=== PATIENT | male | born 1960 | race Hispanic/Latino ===

== ENCOUNTER 2017-12-09 14:29 | Inpatient (IN) | payer OTHER ==
--- NOTE | 2017-12-09 14:57 | ED PDOC ---
Arrival/HPI - General Chief Complaint: Chest Pain Time Seen by Provider: 12/09/17 14:34 Historian: Patient - History of Present Illness Narrative History of Present Illness (Text): 12/09/17 14:45 57 year old male, whose past medical history includes diabetes and gout, who presents to the Emergency department complaining of suddenly developing chest pain and palpitations 1 hour prior to arrival. Patient states he was at a car wash when he suddenly developed these symptoms, and notes his right hand was shaking and his left hand started feeling "out of control." Patient notes he still has these symptoms, but not sweating anymore and his hands are not shaking. Patient has no history of hypertension, no known CAD, is a non-smoker, and has no significant past family history. Patient denies any fever, cough, vomiting, diarrhea, abdominal pain, neck pain, headache, dizziness, or any other complaints. Time/Duration: Prior to Arrival Symptom Onset: Sudden Symptom Course: Unchanged Quality: Aching Activities at Onset: Light Context: Other (Car wash) Past Medical History - Provider Review Nursing Documentation Reviewed: Yes - Pulmonary Hx Asthma: Yes - Endocrine/Metabolic Hx Diabetes Mellitus Type 2: Yes - Musculoskeletal/Rheumatological Hx Gout: Yes - Psychiatric Hx Substance Use: No Family/Social History - Physician Review Nursing Documentation Reviewed: Yes Family/Social History: No Known Family HX Smoking Status: Never Smoked Hx Alcohol Use: No Hx Substance Use: No Allergies/Home Meds Allergies/Adverse Reactions: Allergies No Known Allergies Allergy (Verified 12/09/17 14:43) Home Medications: Home Meds Medication Instructions Recorded Confirmed Dapagliflozin Propanediol [Farxiga] 5 mg PO DAILY 12/09/17 12/09/17 Review of Systems - Physician Review All systems were reviewed & negative as marked: Yes - Review of Systems Constitutional: Normal. absent: Fevers Eyes: Normal ENT: Normal Respiratory: Normal. absent: Cough Cardiovascular: Chest Pain, Palpitations. absent: Normal Gastrointestinal: Normal. absent: Abdominal Pain, Diarrhea, Nausea, Vomiting Genitourinary Male: Normal Musculoskeletal: Normal. absent: Back Pain, Neck Pain Skin: Normal Neurological: Other (patient notes left hand was shaking, and right hand felt "out of control"). absent: Normal, Headache, Dizziness Endocrine: Diaphoresis. absent: Normal Hemo/Lymphatic: Normal Psychiatric: Normal Physical Exam Vital Signs Reviewed: Yes Vital Signs Temp Pulse Resp BP Pulse Ox 12/09/17 15:19 74 17 131/87 95 12/09/17 14:44 97.8 F 76 17 154/105 H 96 Temperature: Afebrile Blood Pressure: Hypertensive Pulse: Regular Respiratory Rate: Normal Appearance: Positive for: Well-Appearing, Non-Toxic Pain Distress: None Mental Status: Positive for: Alert and Oriented X 3 Finger Stick Blood Glucose: 132 - Systems Exam Head: Present: Atraumatic, Normocephalic Pupils: Present: PERRL Extroacular Muscles: Present: EOMI Conjunctiva: Present: Normal Mouth: Present: Moist Mucous Membranes Neck: Present: Normal Range of Motion Respiratory/Chest: Present: Clear to Auscultation, Good Air Exchange. No: Respiratory Distress, Accessory Muscle Use Cardiovascular: Present: Regular Rate and Rhythm, Normal S1, S2. No: Murmurs Abdomen: No: Tenderness, Distention, Peritoneal Signs Back: Present: Normal Inspection Upper Extremity: Present: Normal Inspection. No: Cyanosis, Edema Lower Extremity: Present: Normal Inspection. No: Edema Neurological: Present: GCS=15, CN II-XII Intact, Speech Normal, Other (strength equal side to side) Skin: Present: Warm, Dry, Normal Color. No: Rashes Psychiatric: Present: Alert, Oriented x 3, Anxious (seems extremely anxious) Medical Decision Making ED Course and Treatment: 12/09/17 14:45 Impression: 57 year old male who presents to the Emergency department after suddenly developing chest pain, palpitations, breaking out into a sweat and shaky hands 1 hour prior to arrival. Plan: -- EKG -- Labs -- X-Ray of chest -- Aspirin 324 mg PO -- Nitrostat SL tab -- Reassess and disposition Progress Notes: 12/09/17 14:[address] Smiley who is aware of and agrees with plan, suggests sterile enzymes and stress test. EKG: Ordered, reviewed, and independently interpreted the EKG. Interpretation : NSR at [address] changes. Chest X-Ray reviewed by radiologist, shows: Dictator : Morena Calix MD Report Date : 12/09/2017 15:23:21 FINDINGS: LUNGS: The lungs are well inflated and clear. PLEURA: No significant pleural effusion identified, no pneumothorax apparent. CARDIOVASCULAR: Normal. OSSEOUS STRUCTURES: No significant abnormalities. VISUALIZED UPPER ABDOMEN: Normal. OTHER FINDINGS: None. IMPRESSION: No active pulmonary disease. - Lab Interpretations Lab Results: 12/09/17 14:50 12/09/17 14:50 Lab Results 12/09/17 14:50: Sodium 138, Potassium 4.2, Chloride 105, Carbon Dioxide 23, Anion Gap 15, BUN 16, Creatinine 0.8, Est GFR ( Amer) > 60, Est GFR (Non- Af Amer) > 60, Random Glucose 148 H, Calcium 9.1, Phosphorus 2.9, Magnesium 2.0 , Total Bilirubin 0.4, AST 21, ALT 21, Alkaline Phosphatase 98, Lactate Dehydrogenase 465, Total Creatine Kinase 74, Troponin I < 0.01, Total Protein 7.5, Albumin 3.9, Globulin 3.6, Albumin/Globulin Ratio 1.1 12/09/17 14:50: PT 11.1, INR 0.97 12/09/17 14:50: WBC 9.6, RBC 5.47, Hgb 15.5, Hct 44.9, MCV 82.1, MCH 28.3, MCHC 34.5, RDW 13.3, Plt Count 350, MPV 9.8, Gran % 64.5, Lymph % (Auto) 19.4 L, Mills % (Auto) 8.8 H, Eos % (Auto) 7.1 H, Baso % (Auto) 0.2, Gran # 6.17, Lymph # (Auto) 1.9, Mills # (Auto) 0.8 H, Eos # (Auto) 0.7, Baso # (Auto) 0.02 - RAD Interpretation Radiology Orders: 12/09/17 14:47 CHEST PORTABLE [RAD] Stat Striker Out: Radiologist - EKG Interpretation Interpreted by ED Physician: Yes Type: 12 lead EKG - Medication Orders Current Medication Orders: Discontinued Medications Aspirin (Aspirin Chewable) 324 mg PO STAT STA Stop: 12/09/17 14:47 Last Admin: 12/09/17 14:53 Dose: 324 mg Nitroglycerin (Nitrostat Sl Tab) 0.4 mg SL STAT STA Stop: 12/09/17 14:47 Last Admin: 12/09/17 14:52 Dose: 0.4 mg Nitroglycerin (Nitrostat Sl Tab) 0.4 mg SL STAT STA Stop: 12/09/17 15:20 Last Admin: 12/09/17 15:22 Dose: 0.4 mg - Scribe Statement The provider has reviewed the documentation as recorded by the Joelibe Gifty Dickerson All medical record entries made by the Hayden were at my direction and personally dictated by me. I have reviewed the chart and agree that the record accurately reflects my personal performance of the history, physical exam, medical decision making, and the department course for this patient. I have also personally directed, reviewed, and agree with the discharge instructions and disposition. Disposition/Present on Arrival - Present on Arrival Any Indicators Present on Arrival: No History of DVT/PE: No History of Uncontrolled Diabetes: No Urinary Catheter: No History of Decub. Ulcer: No History Surgical Site Infection Following: None - Disposition Have Diagnosis and Disposition been Completed?: Yes Diagnosis: Chest pain Disposition: HOSPITALIZED Disposition Time: 16:28 Patient Plan: Observation, Telemetry Condition: GOOD Discharge Instructions (ExitCare): Chest Pain (ED) Referrals: Dustin Smiley MD [Primary Care Provider] - Follow up with primary Forms: [employer] (Japanese)
[2017-12-09 15:15] LABS: BASO # 0.02 K/mm3 (0.0-2.0); BASO % 0.2 % (0.0-3.0); EOS # 0.7 (0.0-0.7); EOS % 7.1 % (1.5-5.0); GRAN # 6.17 (1.4-6.5); GRAN % 64.5 % (50.0-68.0); HEMOGLOBIN 15.5 g/dL (14.0-18.0); LYMPH # 1.9 (1.2-3.4); LYMPH % 19.4 % (22.0-35.0); MEAN CELL VOLUME 82.1 fl (80.0-105.0); MEAN CORPUSCULAR HEMOGLOBIN 28.3 pg (25.0-35.0); MEAN CORPUSCULAR HGB CONC 34.5 g/dl (31.0-37.0); MEAN PLATELET VOLUME 9.8 fl (7.0-11.0); MONO # 0.8 (0.1-0.6); MONO % 8.8 % (1.0-6.0); RBC 5.47 10^6/uL (3.5-6.1); RED CELL DISTRIBUTION WIDTH 13.3 % (11.5-14.5); WHITE BLOOD COUNT 9.6 10^3/ul (4.5-11.0)
[2017-12-09 15:16] LABS: INR 0.97; PROTHROMBIN TIME 11.1 SECONDS (9.4-12.5)
--- NOTE | 2017-12-09 15:24 | RAD ---
Date of service: 12/09/2017 HISTORY: chest pain COMPARISON: No prior. FINDINGS: LUNGS: The lungs are well inflated and clear. PLEURA: No significant pleural effusion identified, no pneumothorax apparent. CARDIOVASCULAR: Normal. OSSEOUS STRUCTURES: No significant abnormalities. VISUALIZED UPPER ABDOMEN: Normal. OTHER FINDINGS: None. IMPRESSION: No active pulmonary disease.
[2017-12-09 15:26] LABS: ALB/GLOB RATIO 1.1 (1.1-1.8); ALBUMIN 3.9 g/dL (3.0-4.8); ALT/SGPT 21 U/L (7-56); AST/SGOT 21 U/L (17-59); BLOOD UREA NITROGEN 16 mg/dL (7-21); CALCIUM 9.1 mg/dL (8.4-10.5); GFR NON-AFRICAN AMERICAN > 60
--- NOTE | 2017-12-09 15:36 | CARD ---
APPROVED REPORT Date of service: 12/09/2017 EKG Measurement Heart [id number] [id number] <Conclusion> Normal sinus rhythm Normal ECG
[2017-12-09 15:41] LABS: TROPONIN I < 0.01 ng/mL
[2017-12-09] MEDS ORDERED: Dextrose 50% SYRINGE Inj (50 ml) IV PRN (16:47)
[2017-12-09] MEDS ORDERED: Albuterol-Ipratrop 3 mg / 0.5 (3 ml) UD IH PRN (17:13)
--- NOTE | 2017-12-09 17:20 | CP.PCM.HP ---
<Kaylin Parker - Last Filed: 12/09/17 17:41> History of Present Illness - History of Present Illness History of Present Illness: Kaylin Parker PGY1 H&P for Dr. Stewart Mr. Fernandes is a 57yoM with a PMH of asthma, DM 2, and gout who presented to the ED for chest pain x1 hour. He reports driving home from the [place] with his and stopping for gas when he felt the chest pain start. He describes the pain as dull, and rates it 8/10. He says he also felt decreased strength in the L hand and shaking in the R hand. He also reports sweating, and his said he looked pale. He also reports shortness of breath and dizziness at the time. He denies any palpitations. He denied any trauma or strain to muscles. He reports a previous history of this 12 years ago when he was taking bupropion and on the nicotine patch, upon which he went to the ED and his workup for chest pain was unremarkable. He says the chest pain has now subsided, and he just feel soreness. He denies any current shortness of breath, dizziness, abdominal pain, nausea, vomiting, diarrhea, dysuria, or polyuria. Psych: denied any feelings of hopelessness, loss of interest in activities, anxiety, feelings of doom, or increased stress In the ED, he received ASA 325 and nitrostat 0.4 x2. PMH: asthma, DM 2, gout PSxH: orthopedic surgery on L arm 1973 FamH: mom - lung cancer, dad from atherosclerosis SocH: former smoker, quit 12 y ago. 29pack/yr history. social etoh use. denies recreational drug use. lives at home with his . drinks 7 cups of coffee/day (only had 2 today) Meds: farxiga, advair BID, provair daily Allergies: NKDA PMD: Dr. Smiley Present on Admission - Present on Admission Any Indicators Present on Admission: No Review of Systems - Constitutional Constitutional: Excessive Sweating. absent: Headache - Cardiovascular Cardiovascular: Chest Pain, Diaphoresis, Dyspnea. absent: Palpitations - Respiratory Respiratory: Dyspnea - Gastrointestinal Gastrointestinal: Abdominal Pain. absent: Nausea, Vomiting - Genitourinary Genitourinary: absent: Dysuria, Urinary Frequency - Musculoskeletal Musculoskeletal: Numbness, Tingling - Neurological Neurological: absent: Headaches - Psychiatric Psychiatric: absent: Anxiety, Depression, Hopelessness, Suicidal Ideation Past Patient History - Past Social History Smoking Status: Never Smoked - PULMONARY Hx Asthma: Yes - ENDOCRINE/METABOLIC Hx Diabetes Mellitus Type 2: Yes - MUSCULOSKELETAL/RHEUMATOLOGICAL Hx Gout: Yes - PSYCHIATRIC Hx Substance Use: No - SURGICAL HISTORY Hx Surgeries: No Meds Allergies/Adverse Reactions: Allergies Allergy/AdvReac Type Severity Reaction Status Date / Time No Known Allergies Allergy Verified 12/09/17 14:43 Physical Exam - Constitutional Appears: Well, No Acute Distress - Head Exam Head Exam: ATRAUMATIC, NORMOCEPHALIC - Eye Exam Eye Exam: EOMI Pupil Exam: NORMAL ACCOMODATION - ENT Exam ENT Exam: Mucous Membranes Moist - Respiratory Exam Respiratory Exam: Clear to Auscultation Bilateral, NORMAL BREATHING PATTERN. absent: Rhonchi, Wheezes, Stridor - Cardiovascular Exam Cardiovascular Exam: REGULAR RHYTHM, +S1, +S2. absent: Gallop, Rubs, Systolic Murmur - GI/Abdominal Exam GI & Abdominal Exam: Normal Bowel Sounds, Soft. absent: Distended, Firm, Tenderness - Extremities Exam Extremities exam: Negative for: pedal edema - Back Exam Back exam: NORMAL INSPECTION - Neurological Exam Neurological exam: Alert, CN II-XII Intact, Motor Sensory Deficit, Oriented x3 Additional comments: decreased sensation of L anterior digits compared to R - Psychiatric Exam Psychiatric exam: Normal Affect, Normal Mood - Skin Skin Exam: Normal Color Results - Vital Signs Recent Vital Signs: Last Vital Signs Temp 98.6 F 12/09/17 17:00 Pulse 72 12/09/17 17:00 Resp 18 12/09/17 17:00 BP 156/79 H 12/09/17 17:00 Pulse Ox 96 12/09/17 17:00 - Labs Result Diagrams: 12/09/17 14:50 12/09/17 14:50 Assessment & Plan - Assessment and Plan (Free Text) Assessment: 57yo M PMH asthma, DM 2, gout presents with chest pain admitted for r/o ACS Plan: Chest pain r/o ACS - pt with episode of chest pain x1 hr - reported improvement with ASA 325 and nitrostat x2 in ED - EKG: NSR @78 - CXR: no active disease - trop negative x1 - f/u repeat trops - f/u repeat EKG in AM - f/u lipid panel - f/u TSH, free T4 - f/u ECHO - f/u UDS - admit to tele - Cardio consulted, Dr. Yanez - f/u recs Asthma - home meds: advair BID, provair PRN (reports increased use recently) - sat 96% on RA - duonebs PRN - monitor DM 2 - reports last HbA1c 2 months ago: 6.2 - reports glucose at home 100-130s - Glucose in ED: 148 - start sliding scale - accuchecks - f/u HbA1c - continue to monitor PPx: GI: protonix 40 DVT: SCDs, low risk for DVT/PE HHD Case discussed and plan reviewed with Dr. Stewart Decision To Admit - Pt Status Changed To: Hospital Disposition Of: Inpatient Admission - Admit Certification Admit to Inpatient:: After my assessment, the patient will require hospitalization for at least two midnights. This is because of the severity of symptoms shown, intensity of services needed, and/or the medical risk in this patient being treated as an outpatient. - . Bed Request Type: Telemetry <Maria Elena Stewart - Last Filed: 12/09/17 18:24> Results - Vital Signs Recent Vital Signs: Last Vital Signs Temp 97.6 F 12/09/17 17:53 Pulse 68 12/09/17 17:53 Resp 16 12/09/17 17:53 BP 118/78 12/09/17 17:53 Pulse Ox 96 12/09/17 17:00 - Labs Result Diagrams: 12/09/17 14:50 12/09/17 14:50 Labs: Laboratory Results - last 24 hr 12/09/17 12/09/17 17:06 17:18 POC Glucose (mg/dL) 115 H Free T4 1.05 TSH 3rd Generation 3.04 Attending/Attestation - Attestation I have personally seen and examined this patient.: Yes I have fully participated in the care of the patient.: Yes I have reviewed all pertinent clinical information: Yes Notes (Text): 12/09/17 18:20 57 year old male with past medical history of diabetes and asthma who presents with complaint of chest pain. Will admit to telemetry unit for observation to rule out ACS. Serial cardiac enzymes and echocardiogram are ordered. Patient admits to excessive coffee intake and was counselled on limiting daily caffeine intake. Will also check lipid panel and TSH. Maria Elena Stewart MD Hospitalist.
[2017-12-09 17:33] LABS: FREE T4 1.05 ng/dL (0.78-2.19)
[2017-12-09 21:38] LABS: BARBITURATES, UR NEGATIVE (NEGATIVE); BENZODIAZEPINES, UR NEGATIVE (NEGATIVE); OPIATES, UR NEGATIVE (NEGATIVE); PHENCYCLIDINE, UR NEGATIVE (NEGATIVE)
[2017-12-09] MEDS: Insulin Reg-LOW-Coverage SC SCH (21:49)
[2017-12-10 06:32] LABS: BASO # 0.05 K/mm3 (0.0-2.0); BASO % 0.5 % (0.0-3.0); EOS # 1.4 (0.0-0.7); EOS % 13.8 % (1.5-5.0); GRAN # 5.51 (1.4-6.5); GRAN % 53.2 % (50.0-68.0); HEMOGLOBIN 15.1 g/dL (14.0-18.0); LYMPH # 2.5 (1.2-3.4); LYMPH % 23.9 % (22.0-35.0); MEAN CELL VOLUME 82.2 fl (80.0-105.0); MEAN CORPUSCULAR HGB CONC 34.1 g/dl (31.0-37.0); MEAN PLATELET VOLUME 9.7 fl (7.0-11.0); MONO # 0.9 (0.1-0.6); MONO % 8.6 % (1.0-6.0); RBC 5.39 10^6/uL (3.5-6.1); RED CELL DISTRIBUTION WIDTH 13.5 % (11.5-14.5); WHITE BLOOD COUNT 10.4 10^3/ul (4.5-11.0)
[2017-12-10 06:43] LABS: ALB/GLOB RATIO 1.1 (1.1-1.8); ALBUMIN 3.3 g/dL (3.0-4.8); ALT/SGPT 27 U/L (7-56); AST/SGOT 19 U/L (17-59); BLOOD UREA NITROGEN 14 mg/dL (7-21); CALCIUM 9.3 mg/dL (8.4-10.5); GFR NON-AFRICAN AMERICAN > 60; HDL CHOLESTEROL 47 mg/dL (29-60)
[2017-12-10 06:53] LABS: LDL CHOLESTEROL 120 mg/dL (0-129)
[2017-12-10] MEDS: Insulin Reg-LOW-Coverage SC SCH ×4 (08:01→21:38)
[2017-12-10] MEDS: Pantoprazole 40 mg EC Tab PO SCH (08:17)
--- NOTE | 2017-12-10 08:59 | CARD ---
APPROVED REPORT Date of service: 12/10/2017 EKG Measurement Heart [id number] 150P50 [id number] <Conclusion> Normal sinus rhythm J-point elevations No change
[2017-12-10] MEDS: Enoxaparin 100 mg Syringe SC SCH ×2 (10:28→21:06)
--- NOTE | 2017-12-10 11:18 | CARD ---
APPROVED REPORT Date of service: 12/10/2017 EXAM: Two-dimensional and M-mode echocardiogram with Doppler and color Doppler. INDICATION Chest Pain 2D DIMENSIONS Left Atrium (2D)3.7 (1.6-4.0cm)IVSd1.2 (0.7-1.1cm) LVDd3.5 (3.9-5.9cm)PWd1.2 (0.7-1.1cm) LVDs2.5 (2.5-4.0cm)FS (%) 28.1 % LVEF (%)55.4 (>50%) M-Mode DIMENSIONS Aortic Root2.60 (2.2-3.7cm)Aortic Cusp Exc.1.50 (1.5-2.0cm) Aortic Valve AoV Peak Cujcsvyl570.0cm/Romain Peak GR.8mmHg Mitral Valve MV E Qkkdenlx41.1cm/sMV A Pqawvxrh40.1cm/sE/A ratio0.7 TDI E/Lateral E'0.0E/Medial E'0.0 Tricuspid Valve TR Peak Wilhbfkt327xm/sRAP [id number] Peak Gr.5mmHg [id number] LEFT VENTRICLE The left ventricle is normal size. There is borderline concentric left ventricular hypertrophy. The left ventricular function is normal. The left ventricular ejection fraction is within the normal range. There is normal LV segmental wall motion. Transmitral Doppler flow pattern is Grade I-abnormal relaxation pattern. RIGHT VENTRICLE The right ventricle is normal size. There is normal right ventricular wall thickness. The right ventricular systolic function is normal. ATRIA The left atrium size is normal. The right atrium size is normal. AORTIC VALVE The aortic valve is normal in structure. No aortic regurgitation is present. There is no aortic valvular stenosis. MITRAL VALVE The mitral valve is mildly thickened. There is no mitral valve regurgitation noted. There is no mitral valve stenosis. TRICUSPID VALVE The tricuspid valve is normal in structure. There is no tricuspid valve regurgitation noted. GREAT VESSELS The aortic root is normal in size. The IVC is normal in size and collapses >50% with inspiration. PERICARDIAL EFFUSION There is a trace circumferential pericardial effusion. <Conclusion> The left ventricle is normal size. There is borderline concentric left ventricular hypertrophy. The left ventricular function is normal. The left ventricular ejection fraction is within the normal range. There is normal LV segmental wall motion. Transmitral Doppler flow pattern is Grade I-abnormal relaxation pattern.
--- NOTE | 2017-12-10 15:34 | CP.PCM.PN ---
<Jeb Caicedo Judy - Last Filed: 12/10/17 15:28> Subjective - Date & Time of Evaluation Date of Evaluation: 12/10/17 Time of Evaluation: 15:30 - Subjective Subjective: Medicine progress note: Marifer PGY - 2, IM resident Patient seen and examined at bedside, no acute overnight events. Denies any more chest pain or shortness of breath. Objective - Vital Signs/Intake and Output Vital Signs (last 24 hours): Temp Pulse Resp BP Pulse Ox 98 F 65 18 119/79 96 12/10/17 12:17 12/10/17 12:17 12/10/17 12:17 12/10/17 12:17 12/10/17 08:44 - Medications Medications: Current Medications Acetaminophen (Tylenol 325mg Tab) 650 mg PO Q6H PRN PRN Reason: Fever >100.4 F Albuterol/Ipratropium (Duoneb 3 Mg/0.5 Mg (3 Ml) Ud) 3 ml IH [id number] PRN PRN Reason: Shortness of Breath Aspirin (Ecotrin) 81 mg PO DAILY [facility] Last Admin: 12/10/17 10:27 Dose: 81 mg Atorvastatin Calcium (Lipitor) 40 mg PO DIN [facility] Clopidogrel Bisulfate (Plavix) 75 mg PO DAILY [facility] Last Admin: 12/10/17 10:27 Dose: 75 mg Dextrose (Dextrose 50% Inj) 0 ml IV STAT PRN; Protocol PRN Reason: Hypoglycemia Protocol Enoxaparin Sodium (Lovenox) 85 mg SC Q12H RAISSA PRN Reason: Protocol Last Admin: 12/10/17 10:28 Dose: 85 mg Dextrose (Dextrose 5% In Water 1000 Ml) 1,000 mls @ 0 mls/hr IV .Q0M PRN; Protocol; Per Protocol PRN Reason: Hypoglycemia Protocol Insulin Human Regular (Humulin R Low) 0 units SC ACHS [facility] PRN Reason: Protocol Last Admin: 12/10/17 11:30 Dose: Not Given Metoprolol Tartrate (Lopressor) 25 mg PO BID [facility] Last Admin: 12/10/17 10:27 Dose: 25 mg Pantoprazole Sodium (Protonix Ec Tab) 40 mg PO 0600 [facility] Last Admin: 12/10/17 08:17 Dose: 40 mg - Labs Labs: PT 11.1 SECONDS (9.4-12.5) 08/26/18 14:50 INR 0.97 12/09/17 14:50 - Constitutional Appears: Well - Head Exam Head Exam: ATRAUMATIC, NORMAL INSPECTION, NORMOCEPHALIC - Eye Exam Eye Exam: EOMI, Normal appearance, PERRL Pupil Exam: NORMAL ACCOMODATION, PERRL - ENT Exam ENT Exam: Mucous Membranes Moist, Normal Exam - Neck Exam Neck Exam: Full ROM, Normal Inspection. absent: Lymphadenopathy - Respiratory Exam Respiratory Exam: Clear to Ausculation Bilateral, NORMAL BREATHING PATTERN - Cardiovascular Exam Cardiovascular Exam: REGULAR RHYTHM, +S1, +S2. absent: Murmur - GI/Abdominal Exam GI & Abdominal Exam: Soft, Normal Bowel Sounds. absent: Tenderness - Extremities Exam Extremities Exam: Full ROM, Normal Capillary Refill, Normal Inspection. absent : Joint Swelling, Pedal Edema - Back Exam Back Exam: NORMAL INSPECTION - Neurological Exam Neurological Exam: Alert, Awake, CN II-XII Intact, Normal Gait, Oriented x3 - Psychiatric Exam Psychiatric exam: Normal Affect, Normal Mood - Skin Skin Exam: Dry, Intact, Normal Color, Warm Assessment and Plan - Assessment and Plan (Free Text) Assessment: 57yo M PMH asthma, DM 2, gout presents with chest pain admitted for r/o ACS Elevated ASCVD score; patient also shows ST/T changes on recent EKG. Although 3 tropes are negative, patient's risk factors warrant laboratory machinist exploration. Plan: Chest pain r/o ACS - Metoprolol, Therapeutic Lovenox, Lipitor, and Plavix - Admit to tele - Cardio consulted, Dr. 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 Asthma - Continue home advair BID, provair PRN (reports increased use recently) - Duonebs PRN DM 2 - RISS with accuchecks PPx: GI: protonix 40 DVT: SCDs, low risk for DVT/PE HHD <Maria Elena Stewart - Last Filed: 12/10/17 16:44> Objective - Vital Signs/Intake and Output Vital Signs (last 24 hours): Temp Pulse Resp BP Pulse Ox 98 F 65 18 119/79 96 12/10/17 12:17 12/10/17 12:17 12/10/17 12:17 12/10/17 12:17 12/10/17 08:44 - Medications Medications: Current Medications Acetaminophen (Tylenol 325mg Tab) 650 mg PO Q6H PRN PRN Reason: Fever >100.4 F Albuterol/Ipratropium (Duoneb 3 Mg/0.5 Mg (3 Ml) Ud) 3 ml IH [id number] PRN PRN Reason: Shortness of Breath Aspirin (Ecotrin) 81 mg PO DAILY [facility] Last Admin: 12/10/17 10:27 Dose: 81 mg Atorvastatin Calcium (Lipitor) 40 mg PO DIN RAISSA Clopidogrel Bisulfate (Plavix) 75 mg PO DAILY [facility] Last Admin: 12/10/17 10:27 Dose: 75 mg Dextrose (Dextrose 50% Inj) 0 ml IV STAT PRN; Protocol PRN Reason: Hypoglycemia Protocol Enoxaparin Sodium (Lovenox) 85 mg SC Q12H RAISSA PRN Reason: Protocol Last Admin: 12/10/17 10:28 Dose: 85 mg Dextrose (Dextrose 5% In Water 1000 Ml) 1,000 mls @ 0 mls/hr IV .Q0M PRN; Protocol; Per Protocol PRN Reason: Hypoglycemia Protocol Insulin Human Regular (Humulin R Low) 0 units SC ACHS [facility]ISSA PRN Reason: Protocol Last Admin: 12/10/17 11:30 Dose: Not Given Metoprolol Tartrate (Lopressor) 25 mg PO BID [facility] Last Admin: 12/10/17 10:27 Dose: 25 mg Pantoprazole Sodium (Protonix Ec Tab) 40 mg PO 0600 [facility] Last Admin: 12/10/17 08:17 Dose: 40 mg - Labs Labs: PT 11.1 SECONDS (9.4-12.5) 12/09/17 14:50 INR 0.97 12/09/17 14:50 Attending/Attestation - Attestation I have personally seen and examined this patient.: Yes I have fully participated in the care of the patient.: Yes I have reviewed all pertinent clinical information, including history, physical exam and plan: Yes Notes (Text): 12/10/17 16:43 57 year old male with past medical history of diabetes and asthma who presented with complaint of chest pain. Although serial cardiac enzymes are negative, EKG does show ST changes as viewed with cardiology. Patient is on aspirin, plavix, metoprolol, statin and lovenox. Echocardiogram was reviewed. Plan is for possible cardiac cath tomorrow. Maria Elena Stewart MD Hospitalist.
--- NOTE | 2017-12-10 21:28 | CON ---
Copied To: Tim Yanez MD Attending MD: Tim Yanez MD DATE: 12/10/2017 CARDIOLOGY CONSULTATION REASON FOR CONSULTATION: Chest pain. HISTORY OF PRESENT ILLNESS: Patient is 57 years old male who has a history of diabetes mellitus for about 1 year presented because of chest pain. The patient stated that he was with his in a carwash. He started to feel chest pain, felt weak and diaphoretic and his noticed that he was pale. EMS was activated and the patient was brought to the emergency room. In the emergency room, the patient did experience recurrent chest pain which was relieved by sublingual nitroglycerin. The patient is unaware of any prior cardiac history. The most recent cardiac workup was stress test many years ago by his primary physician that was negative. PAST MEDICAL HISTORY: Diabetes mellitus, gouty arthritis. REVIEW OF SYSTEMS: No fever or chills. No nausea or vomiting. No syncope. MEDICATIONS: Aspirin 81 mg once a day, Lipitor 40 mg once a day, Lopressor 25 mg twice a day, Lovenox 85 mg subcutaneous twice a day, Plavix 75 mg once a day. PHYSICAL EXAMINATION: GENERAL: Patient is a middle aged male who does not appear to be in any distress. VITAL SIGNS: Blood pressure 129/82, heart rate 69, temperature 98.5, respirations 20. HEENT: Normocephalic. NECK: No JVD. CHEST: Clear. HEART: S1, S2 regular. No gallop and no pericardial rub. ABDOMEN: Soft. EXTREMITIES: No edema and no calf tenderness. LABORATORY DATA: SMA-7: Sodium 140, potassium 4.5, chloride 106, CO2 25, glucose 122, BUN 14, creatinine 0.9. Two sets of troponins are negative. Lipid profile is within normal limit. PT 11.1, INR 0.97. CBC: WBC 10.4, hemoglobin 15.1, hematocrit 44.3, platelet count 331,000. EKG initially revealed sinus rhythm. Subsequently showed 1 mm J-point elevation in the inferior leads. Echocardiographic study revealed sinus rhythm, borderline concentric LVH with normal systolic function and grade 1 abnormal relaxation pattern. ASSESSMENT: 1. Chest pain. Two sets of troponins are negatives. EKG revealed subtle inferior ST elevation. Patient is currently chest pain-free. 2. Diabetes mellitus. 3. Gouty arthritis. CONDITIONS: Case was discussed with Dr. Stewart and medical team. I earlier recommended placing the patient on the current medications including Lipitor 40 mg once a day, Lopressor 25 mg twice a day, therapeutic subcutaneous Lovenox 85 mg twice a day, Plavix 75 mg once a day. Cardiac catheterization was recommended in view of the typical nature of the chest pain and the subtle EKG changes that are dynamic at this time. risks fully explained to the patient. The patient agreed and we scheduled for 10 o' clock in a.m. Tim Yanez MD
[2017-12-11] MEDS: Pantoprazole 40 mg EC Tab PO SCH (05:07)
[2017-12-11 06:25] LABS: BASO # 0.05 K/mm3 (0.0-2.0); BASO % 0.5 % (0.0-3.0); EOS # 1.5 (0.0-0.7); EOS % 14.7 % (1.5-5.0); GRAN # 4.84 (1.4-6.5); GRAN % 47.5 % (50.0-68.0); HEMOGLOBIN 15.2 g/dL (14.0-18.0); LYMPH % 29.1 % (22.0-35.0); MEAN CORPUSCULAR HEMOGLOBIN 28.4 pg (25.0-35.0); MEAN CORPUSCULAR HGB CONC 34.2 g/dl (31.0-37.0); MEAN PLATELET VOLUME 9.8 fl (7.0-11.0); MONO # 0.8 (0.1-0.6); MONO % 8.2 % (1.0-6.0); RBC 5.35 10^6/uL (3.5-6.1); RED CELL DISTRIBUTION WIDTH 13.6 % (11.5-14.5); WHITE BLOOD COUNT 10.2 10^3/ul (4.5-11.0)
[2017-12-11 06:45] LABS: ALB/GLOB RATIO 1.1 (1.1-1.8); ALBUMIN 3.2 g/dL (3.0-4.8); ALT/SGPT 25 U/L (7-56); AST/SGOT 16 U/L (17-59); BLOOD UREA NITROGEN 13 mg/dL (7-21); CALCIUM 8.9 mg/dL (8.4-10.5); GFR NON-AFRICAN AMERICAN > 60
[2017-12-11] MEDS: Insulin Reg-LOW-Coverage SC SCH ×4 (07:38→21:48)
[2017-12-11] MEDS ORDERED: Albuterol-Ipratrop 3 mg / 0.5 (3 ml) UD IH ONE (08:00)
[2017-12-11] MEDS ORDERED: Iohexol 350mgl/ml 50 ML ONE (09:16)
[2017-12-11] MEDS ORDERED: Iodixanol 320 MG/ML 100 ML BOTTLE IV ONE (09:16)
[2017-12-11] MEDS ORDERED: Phenylephrine 10 mg/ml Inj ONE (09:17)
[2017-12-11] MEDS ORDERED: Iodixanol 320 MG/ML 200 ML BOTTLE IV ONE (09:17)
[2017-12-11] MEDS ORDERED: Midazolam 2 MG/2 ML VIAL ONE ×3 (10:01→10:30)
[2017-12-11] MEDS ORDERED: Eptifibatide 20 mg/10mL Inj IVP ONE (10:15)
[2017-12-11] MEDS ORDERED: Nitroglycerin 50mg in D5W 50 MG/250 ML BOTTLE IV ONE (10:39)
[2017-12-11] MEDS ORDERED: Sodium Chloride 0.9% 1,000 ML IV SCH (11:00)
--- NOTE | 2017-12-11 11:32 | CARDCATH ---
Copied To: Brant Quintanilla MD Attending MD: Brant Quintanilla MD PROCEDURE DATE: 12/11/2017 PTCA AND STENT HISTORY: The patient is a 57-year-old male with history of diabetes mellitus, who presents with classic anginal symptoms. The patient underwent cardiac catheterization with Dr. Yanez, which revealed an eccentric 70% stenosis in the proximal RCA. Because of his ongoing symptoms at rest, I was asked to do PTCA and stent in his RCA. PROCEDURE: PTCA and stent of an RCA with coronary arteriography. I performed moderate sedation, which included the presence of an independent trained observer that assisted in monitoring the patient's level of consciousness and physiologic status. After administration of Versed and fentanyl, my intra service time was 30 minutes. Coronary arteriography revealed an eccentric 70% stenosis in the proximal portion of the RCA. The patient was given 2 doses of Integrilin boluses as well as intravenous Angiomax. Under fluoroscopic guide, the guiding catheter was placed in the RCA. An 0.014 ATW wire was used to cross the lesion. A 3.5 x 12 mm drug-eluting stent was placed and deployed at 18 atmospheres of pressure. Repeat coronary arteriography revealed an excellent result with some narrowing in the proximal RCA prior to the stent. 200 mcg of IC nitroglycerin was given. Repeat coronary arteriography revealed resolution of the spasm and an excellent result post PTCA and stent with a drug-eluting stent. Angio-Seal was used to close the femoral artery site. The patient tolerated the procedure well. In summary, the procedure was a successful PTCA and stent of a critically stenosed proximal RCA stenosis. Coronary arteriography revealed single-vessel CAD. Given these findings, I have discussed with the patient and family about his need for aspirin indefinitely, Plavix for at least a year and undergo a strict cardiac risk reduction program. Brant Quintanilla MD
--- NOTE | 2017-12-11 16:50 | CARDCATH ---
Copied To: Tim Yanez MD Attending MD: Tim Yanez MD PROCEDURE DATE: 12/11/2017 LEFT HEART CATHETERIZATION HISTORY: The patient is a [id number] male who has history of diabetes mellitus, presented because of typical episodes of chest pain. OH was ruled out and subsequent EKG after admission revealed subtle anterior ST elevation. Cardiac catheterization was recommended. The procedure and its risks were fully explained to the patient, understood and agreed for the procedure. PROCEDURE: After local infiltration with 1% lidocaine, a 6-[place] Islander sheath was placed in the right femoral artery, left and right coronary angiography performed with 6-[place] Islander JL4 and JR4 diagnostic catheters. Left angiogram was performed with 6-[place] Islander pigtail catheter. The patient tolerated the procedure well without any complications. ANGIOGRAPHIC FINDINGS: Selective injection of left coronary artery revealed left main to be a normal vessel. Left main bifurcated into a medium-sized LAD and a medium-sized circumflex artery. The proximal portion of the LV was mildly calcified and it had 20% proximal narrowing for the origin of the first diagonal branch left coronary artery circulation was angiographically unremarkable. Selective injection of the right coronary artery revealed a medium-sized dominant vessel with 70% eccentric proximal stenosis. Left ventriculogram was performed VILLAL[place]ANDO projection, which revealed normal wall motion and ejection fraction estimated at 55%. Decision was made at this point to consult Dr. Brant Quintanilla, the lead recoverer to intervene on the proximal RCA lesion which was for the patient's recent episode of typical chest pain as well as subtle anterior ST elevation. Case was discussed with the patient who had already agreed for the procedure and signed a written consent prior to the cardiac catheterization. That procedure was successfully done with 3.5 mm drug-eluting stent and the patient tolerated the procedure well and was sent to the telemetry. The patient did receive a loading dose of 300 mg of Plavix prior to the procedure. Tim Yanez MD
--- NOTE | 2017-12-11 18:52 | CP.PCM.PN ---
Subjective - Date & Time of Evaluation Date of Evaluation: 12/11/17 Time of Evaluation: 09:30 - Subjective Subjective: Jeffrey Lui DO PGY-1, Computer Help Desk Specialist Medicine Progress Note for Dr. Stewart Pt seen and examined at bedside this am. States he had trouble sleeping overnight due to feeling apprehensive about his upcoming cardiac cath. Received duoneb tx x 1 overnight for shortness of breath. Pt admits to having hx of asthma and being on advair regularly bid at home. Denies shortness of breath currently, denies chest pain, headache, dizziness, fever, chills, n/v/d/c, abd pain, urinary complaints, or other symptoms. Objective - Vital Signs/Intake and Output Vital Signs (last 24 hours): Temp Pulse Resp BP Pulse Ox 98.4 F 104 H 21 134/86 96 12/11/17 11:56 12/11/17 11:56 12/11/17 11:56 12/11/17 11:56 12/11/17 05:56 Intake and Output: 12/11/17 12/11/17 06:59 18:59 Intake Total 400 Balance 400 - Medications Medications: Current Medications Acetaminophen (Tylenol 325mg Tab) 650 mg PO Q6H PRN PRN Reason: Fever >100.4 F Aspirin (Ecotrin) 81 mg PO DAILY [facility] Last Admin: 12/11/17 11:27 Dose: Not Given Atorvastatin Calcium (Lipitor) 40 mg PO DIN [facility] Last Admin: 12/11/17 17:33 Dose: 40 mg Clopidogrel Bisulfate (Plavix) 75 mg PO DAILY [facility] Last Admin: 12/11/17 11:27 Dose: Not Given Dextrose (Dextrose 50% Inj) 0 ml IV STAT PRN; Protocol PRN Reason: Hypoglycemia Protocol Insulin Human Regular (Humulin R Low) 0 units SC ACHS [facility] PRN Reason: Protocol Last Admin: 12/11/17 17:24 Dose: Not Given - Labs Labs: 12/11/17 05:20 12/11/17 05:20 PT 11.1 SECONDS (9.4-12.5) 12/09/17 14:50 INR 0.97 12/09/17 14:50 APTT 38.3 Seconds (25.1-36.5) H 12/11/17 05:20 - Constitutional Appears: Non-toxic, No Acute Distress - Head Exam Head Exam: ATRAUMATIC - Eye Exam Eye Exam: EOMI, Normal appearance, PERRL - ENT Exam ENT Exam: Mucous Membranes Moist, Normal Oropharynx - Respiratory Exam Respiratory Exam: NORMAL BREATHING PATTERN Additional comments: Mildly decreased breath sounds b/l, minimal wheezes auscultated - GI/Abdominal Exam GI & Abdominal Exam: Soft, Normal Bowel Sounds. absent: Tenderness - Extremities Exam Extremities Exam: Full ROM, Normal Capillary Refill, Normal Inspection - Back Exam Back Exam: Full ROM, NORMAL INSPECTION - Neurological Exam Neurological Exam: Alert, Awake, CN II-XII Intact, Normal Gait, Oriented x3 - Psychiatric Exam Psychiatric exam: Normal Affect, Normal Mood - Skin Skin Exam: Dry, Intact, Normal Color, Warm Assessment and Plan - Assessment and Plan (Free Text) Assessment: 57 y o M PMH asthma, DM 2, gout, presents with chest pain admitted for r/o ACS work-up. Elevated ASCVD score; patient also shows ST/T changes on recent EKG, and J-point elevation. Although 3 troponins are negative, patient's risk factors and clinical presentation warrant laboratory assistant exploration. Plan: Chest pain r/o ACS - Metoprolol, Therapeutic Lovenox, Lipitor, and Plavix - Cardio consulted, Dr. Yanez - f/u recs - ECHO: borderline concentric LVH, normal EF, Grade-1 abnormal relaxation pattern - S/p cardiac cath performed by Dr. Quintanilla today, demonstrated eccentric 70% stenosis in proximal RCA, PCTA and stent was placed, pt tolerated procedure well , continue to monitor overnight Asthma - Continue home advair BID, provair PRN (reports increased use recently) - Duonebs PRN DM 2 - RISS with accuchecks PPX: GI: protonix 40 DVT: SCDs, low risk for DVT/PE Pt seen, examined with, and plan discussed with Dr. Stewart, attending. Jeffrey Lui, PGY-1, Computer Help Desk Specialist Pager #[phone]
[2017-12-12] MEDS ORDERED: Albuterol-Ipratrop 3 mg / 0.5 (3 ml) UD IH ONE (05:48)
[2017-12-12 07:34] LABS: BASO # 0.04 K/mm3 (0.0-2.0); BASO % 0.4 % (0.0-3.0); EOS # 1.1 (0.0-0.7); EOS % 10.9 % (1.5-5.0); GRAN # 5.85 (1.4-6.5); GRAN % 56.7 % (50.0-68.0); HEMOGLOBIN 14.6 g/dL (14.0-18.0); LYMPH # 2.2 (1.2-3.4); LYMPH % 20.8 % (22.0-35.0); MEAN CORPUSCULAR HGB CONC 33.7 g/dl (31.0-37.0); MEAN PLATELET VOLUME 9.8 fl (7.0-11.0); MONO # 1.2 (0.1-0.6); MONO % 11.2 % (1.0-6.0); RBC 5.22 10^6/uL (3.5-6.1); RED CELL DISTRIBUTION WIDTH 13.8 % (11.5-14.5); WHITE BLOOD COUNT 10.3 10^3/ul (4.5-11.0)
[2017-12-12] MEDS: Insulin Reg-LOW-Coverage SC SCH ×2 (07:59→11:56)
[2017-12-12 08:17] LABS: ALB/GLOB RATIO 1.1 (1.1-1.8); ALBUMIN 3.2 g/dL (3.0-4.8); ALT/SGPT 23 U/L (7-56); AST/SGOT 16 U/L (17-59); BLOOD UREA NITROGEN 10 mg/dL (7-21); CALCIUM 9.1 mg/dL (8.4-10.5); GFR NON-AFRICAN AMERICAN > 60
[2017-12-12 10:09] VITALS: O2SAT 94
--- NOTE | 2017-12-12 10:14 | CARD ---
APPROVED REPORT Date of service: 12/11/2017 EKG Measurement Heart [id number] <Conclusion> Normal sinus rhythm Normal ECG
--- NOTE | 2017-12-12 10:54 | PN ---
Copied To: Brant Quintanilla MD Attending MD: Brant Quintanilla MD DATE: 12/12/2017 CARDIOLOGY FOLLOWUP SUBJECTIVE: The patient is asymptomatic, ambulating without symptoms. PHYSICAL EXAMINATION: VITAL SIGNS: Blood pressure is 128/82, the heart rate is in the 70s. NECK: Negative JVD. LUNGS: Without rales. HEART: S1, S2. EXTREMITIES: Without edema. The right groin site is stable. LABORATORY DATA: Hemoglobin is 14.6. Chemistries, BUN and creatinine are unremarkable. ASSESSMENT: 1. Stable post percutaneous transluminal coronary angioplasty and stent of right coronary artery. 2. Coronary artery disease. 3. Diabetes mellitus. 4. Hypercholesterolemia. PLAN: Given these findings, the patient is stable post PTCA and stent. I have discussed with the patient about a strict cardiac risk reduction program including a low carbohydrate diet. I have discussed with the patient about the need for aspirin indefinitely and Plavix for at least a year. Followup has been given to the patient in detail. I have given the patient the name of Dr. Yanez for further Cardiology followup. Brant Quintanilla MD
[2017-12-12 12:19] VITALS: BP 130/88; PULSE 69; RESP 21; TEMP 98.1
--- NOTE | 2017-12-12 12:34 | PN ---
Copied To: Tim Yanez MD Attending MD: Tim Yanez MD DATE: 12/12/2017 SUBJECTIVE: The patient denies any chest pain. No reported groin bleeding. No reported ventricular arrhythmia. PHYSICAL EXAMINATION VITAL SIGNS: Blood pressure 136/76, heart rate 84, temperature 98.2, respirations 19. HEENT: Normocephalic. CHEST: Clear. HEART: S1 and S2, regular. EXTREMITIES: No edema. No hematoma. LABORATORY DATA: CBC: WBC 10.3, hemoglobin 14.6, hematocrit 43.3, platelet count 314,000. EKG done this morning reveals normal sinus rhythm at rate of 65. ASSESSMENT: 1. Chest pain, status post percutaneous coronary intervention to the proximal right coronary artery. 2. Uncontrolled diabetes mellitus. 3. History of gout and gouty arthritis. RECOMMENDATIONS: Continue aspirin 81 mg once a day, Lipitor 20 mg once a day, Plavix 75 mg once a day. The patient was fully informed that aspirin and Plavix has to continue for at least 1 year and following that, the patient will be maintained indefinitely on baby aspirin. The patient will follow up with Dr. Brant Quintanilla as an outpatient. Tim Yanez MD
--- NOTE | 2017-12-12 14:14 | CARD ---
APPROVED REPORT Date of service: 12/12/2017 EKG Measurement Heart [id number] <Conclusion> Normal sinus rhythm ST elevations 2,3,F, V 6
--- NOTE | 2017-12-12 16:52 | CP.PCM.DIS ---
Provider - Provider Date of Admission: 12/10/17 13:00 Attending physician: Maria Elena Stewart MD Primary care physician: Dustin Smiley MD Consults: Cardiology - Dr. Yanez Interventional Cardiology - Dr. Quintanilla Time Spent in preparation of Discharge (in minutes): 45 Diagnosis - Discharge Diagnosis (1) Stenosis of right coronary artery Status: Acute (2) Status post placement of stent in right coronary artery Status: Acute Hospital Course - Lab Results Lab Results: Most Recent Lab Values WBC 10.3 10^3/ul (4.5-11.0) 12/12/17 06:30 RBC 5.22 10^6/uL (3.5-6.1) 12/12/17 06:30 Hgb 14.6 g/dL (14.0-18.0) 12/12/17 06:30 Hct 43.3 % (42.0-52.0) 12/12/17 06:30 MCV 83.0 fl (80.0-105.0) 12/12/17 06:30 MCH 28.0 pg (25.0-35.0) 12/12/17 06:30 MCHC 33.7 g/dl (31.0-37.0) 12/12/17 06:30 RDW 13.8 % (11.5-14.5) 12/12/17 06:30 Plt Count 314 10^3/uL (120.0-450.0) 12/12/17 06:30 MPV 9.8 fl (7.0-11.0) 12/12/17 06:30 Gran % 56.7 % (50.0-68.0) 12/12/17 06:30 Lymph % (Auto) 20.8 % (22.0-35.0) L 12/12/17 06:30 [place] % (Auto) 11.2 % (1.0-6.0) H 12/12/17 06:30 Eos % (Auto) 10.9 % (1.5-5.0) H 12/12/17 06:30 Baso % (Auto) 0.4 % (0.0-3.0) 12/12/17 06:30 Gran # 5.85 (1.4-6.5) 12/12/17 06:30 Lymph # (Auto) 2.2 (1.2-3.4) 12/12/17 06:30 [place] # (Auto) 1.2 (0.1-0.6) H 12/12/17 06:30 Eos # (Auto) 1.1 (0.0-0.7) H 12/12/17 06:30 Baso # (Auto) 0.04 K/mm3 (0.0-2.0) 12/12/17 06:30 PT 11.1 SECONDS (9.4-12.5) 12/09/17 14:50 INR 0.97 12/09/17 14:50 APTT 38.3 Seconds (25.1-36.5) H 12/11/17 05:20 Sodium 141 mmol/L (132-148) 12/12/17 06:30 Potassium 4.3 mmol/L (3.6-5.0) 12/12/17 06:30 Chloride 106 mmol/L (98-107) 12/12/17 06:30 Carbon Dioxide 24 mmol/L (21-33) 12/12/17 06:30 Anion Gap 15 (10-20) 12/12/17 06:30 BUN 10 mg/dL (7-21) 12/12/17 06:30 Creatinine 0.8 mg/dl (0.8-1.5) 12/12/17 06:30 Est GFR ( Amer) > 60 12/12/17 06:30 Est GFR (Non-Af Amer) > 60 12/12/17 06:30 POC Glucose (mg/dL) 98 mg/dL (65-110) 12/11/17 21:42 Random Glucose 140 mg/dL (70-110) H 12/12/17 06:30 Calcium 9.1 mg/dL (8.4-10.5) 12/12/17 06:30 Phosphorus 2.9 mg/dL (2.5-4.5) 12/09/17 14:50 Magnesium 2.0 mg/dL (1.7-2.2) 12/09/17 14:50 Total Bilirubin 0.7 mg/dL (0.2-1.3) 12/12/17 06:30 AST 16 U/L (17-59) L 12/12/17 06:30 ALT 23 U/L (7-56) 12/12/17 06:30 Alkaline Phosphatase 91 U/L (38-126) 12/12/17 06:30 Lactate Dehydrogenase 465 U/L (333-699) 12/09/17 14:50 Total Creatine Kinase 74 U/L (35-230) 12/09/17 14:50 Troponin I < 0.01 ng/mL 12/10/17 05:30 Total Protein 6.1 g/dL (5.8-8.3) 12/12/17 06:30 Albumin 3.2 g/dL (3.0-4.8) 12/12/17 06:30 Globulin 2.9 gm/dL 12/12/17 06:30 Albumin/Globulin Ratio 1.1 (1.1-1.8) 12/12/17 06:30 Triglycerides 125 mg/dL (35-160) 12/10/17 05:30 Cholesterol 195 mg/dL (130-200) 12/10/17 05:30 LDL Cholesterol Direct 120 mg/dL (0-129) 12/10/17 05:30 HDL Cholesterol 47 mg/dL (29-60) 12/10/17 05:30 Free T4 1.05 ng/dL (0.78-2.19) 12/09/17 17:06 TSH 3rd Generation 3.04 mIU/mL (0.46-4.68) 12/09/17 17:06 Urine Opiates Screen Negative (NEGATIVE) 12/09/17 20:50 Urine Methadone Screen Negative (NEGATIVE) 12/09/17 20:50 Ur Barbiturates Screen Negative (NEGATIVE) 12/09/17 20:50 Ur Phencyclidine Scrn Negative (NEGATIVE) 12/09/17 20:50 Ur Amphetamines Screen Negative (NEGATIVE) 12/09/17 20:50 U Benzodiazepines Scrn Negative (NEGATIVE) 12/09/17 20:50 U Oth Cocaine Metabols Negative (NEGATIVE) 12/09/17 20:50 U Cannabinoids Screen Negative (NEGATIVE) 12/09/17 20:50 - Hospital Course Hospital Course: Jeffrey Lui DO PGY-1, Senior Sales Operations Analyst Medicine Discharge Summary 57 y o male PMhx DM2, asthma, and gout presented to the ED for eval of chest pain on 12/09/17. One hr prior to arrival pt developed dull 8/10 chest pain while filling gas in his car. Other associated symptoms included dyspnea, diaphoresis, dizziness, and weakness in L arm. Pt had occurrence of similar pain approx. 12 y ago while taking Wellbutrin and nicotine patches and stated he underwent a negative cardiac work-up at that time. Pt quit smoking but has 29 pack year hx. Home medications included Farxiga, Advair, and Proair. Upon arrival to ED, CXR showed no acute findings. EKG showed J-point elevation but otherwise normal sinus rhythm. All of his symptoms resolved after one 325 mg aspirin and 2 doses of nitrostate in the ED. Pt was thus admitted for ACS rule- out. Labs on admission were unremarkable including normal WBC, normal H/H, normal lipid panel, normal creatinine, and normal BUN. While admitted, troponins were neg x3. Repeat EKG showed persistent J-point elevation. Echocardiogram showed borderline concentric L ventricular hypertrophy and grade [address] Yanez (Cardiology) was consulted, who recommended diagnostic cardiac cath. Pt was placed on Lovenox 85 mg q 12 h, Plavix 75 mg daily, and ASA [address] Yanez pre-op. Cardiac catheterization performed by Dr. Quintanilla revealed eccentric 70% stenosis in the proximal RCA, and performed percutaneous transluminal coronary angioplasty of the RCA w/ coronary arteriography, and drug-eluting stent was placed in RCA. Pt tolerated procedure well and was monitored for any post-operative complications. He was educated on the use of new daily medication, including ASA , Lipitor, and Plavix. Of note, while admitted pt was placed on insulin sliding scale for his DM2 but required no units due to adequate control of his blood sugar btwn 100-161. He stated that his most recent A1c was 6.2 which was taken within the last 3 mos. In regards to pt's asthma, pt was managed with duonebs q 6 h. O2 was steady at 96% on room air. Pt was discharged to home in stable condition on 12/12/17, and instructed to follow-up with PCP (Dr. Smiley) within 1 week of discharge, and with Dr. Yanez (Cardiology) within 1 week of discharge for optimization of cardiac medication regimen. Discharge Exam - Head Exam Head Exam: ATRAUMATIC - Eye Exam Eye Exam: Normal appearance, PERRL - ENT Exam ENT Exam: Mucous Membranes Moist, Normal Oropharynx - Respiratory Exam Respiratory Exam: Clear to PA & Lateral, NORMAL BREATHING PATTERN, UNREMARKABLE - Cardiovascular Exam Cardiovascular Exam: REGULAR RHYTHM, +S1, +S2 - GI/Abdominal Exam GI & Abdominal Exam: Normal Bowel Sounds, Soft, Unremarkable. absent: Tenderness - Extremities Exam Extremities exam: full ROM, normal capillary refill, normal inspection, pedal pulses present - Neurological Exam Neurological exam: Alert, CN II-XII Intact, Normal Gait, Oriented x3 - Psychiatric Exam Psychiatric exam: Normal Affect, Normal Mood - Skin Skin Exam: Dry, Intact, Normal Color, Warm Discharge Plan - Discharge Medications Prescriptions: Aspirin [Ecotrin] 81 mg PO DAILY #30 tabec Atorvastatin [Lipitor] 40 mg PO DIN #30 tab Clopidogrel [Plavix] 75 mg PO DAILY #30 tab - Follow Up Plan Condition: GOOD Disposition: HOME/ ROUTINE Instructions: Heart Healthy Diet, Cardiac Catheterization (DC), Coronary Stenting (DC), Diabetes Diet , Chest Pain (DC), Coronary Heart Disease (DC), Chest Pain (DC), Chest Pain (GEN) Additional Instructions: Please follow-up with your primary care physician (Dr. Smiley) within 1 week of discharge. Please follow-up with cardiology (Dr. Yanez) within 1 week of discharge. Please take medications as prescribed, including your newly prescribed Plavix, Aspirin, and Lipitor. Please resume home medications as previously prescribed. Should symptoms recur or worsen, please call your primary care physician or report to your nearest emergency department. Referrals: Dustin Smiley MD [Primary Care Provider] - Tim Yanez MD [Staff Provider] -
== END 2017-12-12 15:06 | disposition home or self-care (01) | DRG 247 ==
LOC: ED 14:29 → ERH 16:28 → 2RNO 17:05 → OBSVTOIN 12-10 13:00 → 2RSO 12-11 11:05
PROVIDERS: ADMIT Internal Medicine; ATTEND Internal Medicine
PROC: 027034Z Dilation of Coronary Artery, One Artery with Drug-eluting Intraluminal Device, Percutaneous Approach (ICD-10-PCS; principal; 2017-12-11)
PROC: 4A023N7 Measurement of Cardiac Sampling and Pressure, Left Heart, Percutaneous Approach (ICD-10-PCS; 2017-12-11)
PROC: B2151ZZ Fluoroscopy of Left Heart using Low Osmolar Contrast (ICD-10-PCS; 2017-12-11)
PROC: B2111ZZ Fluoroscopy of Multiple Coronary Arteries using Low Osmolar Contrast (ICD-10-PCS; 2017-12-11)
DX: I25.10 Atherosclerotic heart disease of native coronary artery without angina pectoris (principal); E11.65 Type 2 diabetes mellitus with hyperglycemia; M10.9 Gout, unspecified; J45.909 Unspecified asthma, uncomplicated; E78.00 Pure hypercholesterolemia, unspecified; Z79.02 Long term (current) use of antithrombotics/antiplatelets; Z79.82 Long term (current) use of aspirin; Z80.1 Family history of malignant neoplasm of trachea, bronchus and lung; Z87.891 Personal history of nicotine dependence